=== PATIENT | female | born 1980 | race Caucasian/White ===

== ENCOUNTER 2024-10-28 10:28 | Emergency (ER) | payer OTHER ==
[2024-10-28] MEDS ORDERED: IPRATROPIUM BROM 0.5MG/2.5ML ONE (10:50)
[2024-10-28] MEDS ORDERED: ALBUTEROL 2.5 MG/3 ML NEB SOL ONE (10:50)
--- NOTE | 2024-10-28 11:10 | RAD REPORT ---
EXAM: Chest Pa And Lat (2 Views) HISTORY: Congestion;Cough COMPARISON: None. FINDINGS: LUNGS/PLEURA: The lungs are clear. No pleural effusions or pneumothorax. No pulmonary edema. MEDIASTINUM: The mediastinal silhouette is within normal limits. CARDIAC: The cardiac silhouette is within normal limits. UPPER ABDOMEN: No significant abnormality. BONES: No acute fracture. LINES/TUBES/OTHER: Left-sided Port-A-Cath with tip overlying the distal SVC in satisfactory position. IMPRESSION: No evidence of acute cardiopulmonary disease.
[2024-10-28 11:32] LABS: Absolute Basophils 0.1 K/uL (0-0.5); Absolute Eosinophils 0.4 K/uL (0-0.5); Absolute Lymphocytes (CBC) 1.2 K/uL (0.7-4.9); Absolute Monocytes 0.8 K/uL (0.1-1.3); Absolute Neutrophil 3.4 K/uL (1.8-8.0); Eosinophils % 7.3 % (0-4.4); Hematocrit 36.7 % (36.0-45.0); Hemoglobin 11.4 g/dL (12.0-15.0); Lymphocytes % 20.9 % (15.3-44.8); MCH 25.3 pg (27.0-35.0); MCHC 31.1 g/dL (32.0-36.0); MCV 81.6 fL (80-100); MPV 7.5 fL (7.6-11.3); Monocytes % 13.7 % (3.3-12.3); Neutrophils % 57.1 % (41.7-73.7); Platelets 429 thou/uL (152-406); Red Cell Distribution Width 16.8 % (12.1-15.2)
[2024-10-28 11:40] LABS: Anion Gap 9.9 mEq/L (5.0-15.0); Potassium 3.9 mEq/L (3.5-5.1)
--- NOTE | 2024-10-28 12:19 | EDPHYS ---
Physician Documentation [facility] Name: Shae Lara Age: 44 yrs Sex: Female : 1980 Arrival Date: 10/28/2024 Time: 10:28 Bed 13 Private MD: ED Physician Edson Bernal HPI: 10/28 11:32 This 44 yrs old Female presents to ER via Ambulatory with complaints of flu symptoms. sb4 11:35 shortness of breath, cough, congestion x 5 days. went to [facility] ED yesterday, was sb4 diagnosed with RSV. is concerned because they did not listen to her lungs or do a chest xray. patient states she was up all night coughing. denies any history of asthma or copd. does not smoke. Historical: - Allergies: 10:35 PENICILLINS; iw 10:35 Morphine; iw 10:35 Miralax; iw 10:35 Adhesives; iw 10:35 Latex, Natural Rubber; iw - PMHx: 10:35 ulcerative colitis; iw - PSHx: 10:35 Cholecystectomy; Appendectomy; tubal; iw 10:36 Tonsillectomy; iw - Immunization history:: Adult Immunizations up to date. - Infectious Disease History:: Denies. - Social history:: Smoking status: Patient denies any tobacco usage or history of. ROS: 11:35 Constitutional: Negative for fever, chills, and weight loss, sb4 11:35 ENT: Positive for sinus congestion, sinus pain, 11:35 Respiratory: Positive for cough, with green sputum, dyspnea on exertion, orthopnea, shortness of breath, wheezing, 11:35 All other systems are negative, Exam: 11:35 Head/Face: Normocephalic, atraumatic. Eyes: Extra-ocular motions intact. Periorbital sb4 areas with no swelling, redness, or edema. ENT: Mucous membranes moist. Cardiovascular: Regular rate and rhythm with a normal S1 and S2. Respiratory: No increased work of breathing, no retractions or nasal flaring. Abdomen/GI: Soft, non-tender, no distension. Skin: Warm, dry with normal turgor. Normal color with no rashes, no lesions, and no evidence of cellulitis. 11:35 Constitutional: The patient appears in no acute distress, alert, awake, obese, 11:37 Respiratory: the patient does not display signs of respiratory distress, Respirations: sb4 normal, no acute changes, Breath sounds: are clear throughout, Vital Signs: 10:33 BP 159 / 80; Pulse 84; Resp 20 S; Temp 97.2; Pulse Ox 99% on R/A; Weight 127.01 kg; iw Height 5 ft. 2 in. ; 11:18 BP 151 / 79; Pulse 70; Resp 17; Pulse Ox 99% on R/A; rs5 10:33 Body Mass Index 51.21 (127.01 kg, 157.48 cm) iw MDM: 10:37 Medical Screening Exam initiated sb4 12:18 Antibiotic administration: Not indicated, the patient does not have an appreciated sb4 infiltrate, the patient has a suspected viral illness. Data reviewed: vital signs, nurses notes, lab test result(s), radiologic studies, and as a result, I will discharge patient. Counseling: I had a detailed discussion with the patient and/or guardian regarding the historical points, exam findings, and any diagnostic results supporting the discharge/admit diagnosis, lab results, radiology results, the need for outpatient follow up, for definitive care, to return to the emergency department if symptoms worsen or persist or if there are any questions or concerns that arise at home. 10/28 10:45 Order name: CBC with Diff; Complete Time: 11:37 sb4 10/28 10:45 Order name: BMP; Complete Time: 11:42 sb4 10/28 10:45 Order name: Chest Pa And Lat (2 Views) XRAY; Complete Time: 11:21 sb4 10/28 10:45 Order name: IV Start; Complete Time: 11:17 sb4 Administered Medications: 11:05 Drug: DuoNeb Nebulize (3:1) (2.5 mg - 0.5 mg) 3 ml Nebulizer once Route: Nebulizer; rs5 11:19 Follow up: Response: No adverse reaction rs5 Disposition Summary: 10/28/24 12:19 Discharge Ordered Notes: Location: Home sb4 Problem: new sb4 Symptoms: have improved sb4 Condition: Stable sb4 Diagnosis - Respiratory syncytial virus as the cause of diseases classified elsewhere sb4 Followup: sb4 - With: Amalia Rodas, DO - When: 1 week - Reason: Recheck today's complaints, Continuance of care, Re-evaluation by your physician Followup: sb4 - With: Martin Chacko DO - When: As needed - Reason: Recheck today's complaints, Re-evaluation by your physician Followup: sb4 - With: Ginger Eckert MD - When: As needed - Reason: Recheck today's complaints, Re-evaluation by your physician Discharge Instructions: - Discharge Summary Sheet sb4 - Viral Respiratory Infection, [id number]-[id number] sb4 - Respiratory Syncytial Virus Infection, Adult sb4 Forms: - Patient Portal Instructions sb4 - Leadership Thank You Letter sb4 Prescriptions: - albuterol sulfate 90 mcg/actuation Inhalation HFA Aerosol Inhaler - inhale 1 puff INHALATION route every 4 to 6 hours as needed for sob or sb4 wheezing; 1 Applicator; Refills: 0, Product Selection Permitted - Prednisone 20 mg Oral Tablet - take 1 tablet ORAL route once daily for 5 days; 5 tablet; Refills: 0, Product sb4 Selection Permitted Addendum: 11/02/2024 12:51 Co-signature as Attending Physician, Edson Bernal MD I agree with the assessment and c hoover plan of care. Signatures: Dispatcher [employer] EDTX Edson Bernal MD MD cha Williams, Irene RN IHSAN iw Jina Rubin PA-C PAWyatt [email or web address] Marcelino Maravilla RN RN rs5 Corrections: (The following items were deleted from the chart) 10/28 11:37 11:35 Head/Face: Normocephalic, atraumatic. Eyes: Extra-ocular motions intact. sb4 Periorbital areas with no swelling, redness, or edema. ENT: Mucous membranes moist. Cardiovascular: Regular rate and rhythm with a normal S1 and S2. Respiratory: No increased work of breathing, no retractions or nasal flaring. Abdomen/GI: Soft, non-tender, no distension. Skin: Warm, dry with normal turgor. Normal color with no rashes, no lesions, and no evidence of cellulitis. sb4
--- NOTE | 2024-10-28 12:19 | ER ---
Nurse's Notes [facility] Name: Shae Lara Age: 44 yrs Sex: Female : 1980 Arrival Date: 10/28/2024 Time: 10:28 Bed 13 Private MD: Diagnosis: Respiratory syncytial virus as the cause of diseases classified elsewhere Presentation: 10/28 10:33 Chief complaint: Patient states: was seen at [facility] and they said it was RSV , has had iw cough, wheezing , fever , body aches, lungs and chest hurt , they did not do a CXR , symptoms started 10 days ago. Coronavirus screen: Client presents with at least one sign or symptom that may indicate coronavirus-19. Ebola Screen: No symptoms or risks identified at this time. Initial Sepsis Screen: Does the patient meet any 2 criteria? No. Patient's initial sepsis screen is negative. Does the patient have a suspected source of infection? No. Patient's initial sepsis screen is negative. Risk Assessment: Do you want to hurt yourself or someone else? Patient reports no desire to harm self or others. Onset of symptoms was October 18, 2024. 10:33 Method Of Arrival: Ambulatory iw 10:33 Acuity: TERRY 3 iw Triage Assessment: 11:18 General: Appears in no apparent distress. uncomfortable. General: Behavior is calm, rs5 cooperative. Respiratory: Respiratory: Onset: The symptoms/episode began/occurred. Historical: - Allergies: 10:35 PENICILLINS; iw 10:35 Morphine; iw 10:35 Miralax; iw 10:35 Adhesives; iw 10:35 Latex, Natural Rubber; iw - PMHx: 10:35 ulcerative colitis; iw - PSHx: 10:35 Cholecystectomy; Appendectomy; tubal; iw 10:36 Tonsillectomy; iw - Immunization history:: Adult Immunizations up to date. - Infectious Disease History:: Denies. - Social history:: Smoking status: Patient denies any tobacco usage or history of. Screenin:40 [facility] ED Fall Risk Assessment (Adult) History of falling in the last 3 months, rs5 including since admission No falls in past 3 months (0 pts) Confusion or Disorientation No (0 pts) Intoxicated or Sedated No (0 pts) Impaired Gait No (0 pts) Mobility Assist Device Used No (0 pt) Altered Elimination No (0 pt) Score/Fall Risk Level 0 - 2 = Low Risk Oriented to surroundings, Maintained a safe environment. Abuse screen: Denies threats or abuse. Nutritional screening: No deficits noted. Tuberculosis screening: No symptoms or risk factors identified. Assessment: 10:40 General: Appears in no apparent distress. uncomfortable, Behavior is calm, cooperative. rs5 Pain: Denies pain. Neuro: Level of Consciousness is awake, alert, obeys commands, Oriented to person, place, time, situation. Cardiovascular: Patient's skin is warm and dry. Rhythm is regular. Respiratory: Reports shortness of breath cough that is Airway is patent Respiratory effort is even, unlabored, Respiratory pattern is regular, symmetrical, Breath sounds are clear bilaterally. GI: Abdomen is round non-distended, Abd is soft and non tender X 4 quads. : No signs and/or symptoms were reported regarding the genitourinary system. EENT: No signs and/or symptoms were reported regarding the EENT system. Derm: Skin is intact, Skin is pink, warm \T\ dry. Musculoskeletal: Range of motion: intact in all extremities. 11:18 Reassessment: Patient and/or family updated on plan of care and expected duration. Pain rs5 level reassessed. Patient is alert, oriented x 3, equal unlabored respirations, skin warm/dry/pink. Vital Signs: 10:33 BP 159 / 80; Pulse 84; Resp 20 S; Temp 97.2; Pulse Ox 99% on R/A; Weight 127.01 kg; iw Height 5 ft. 2 in. ; 11:18 BP 151 / 79; Pulse 70; Resp 17; Pulse Ox 99% on R/A; rs5 10:33 Body Mass Index 51.21 (127.01 kg, 157.48 cm) iw ED Course: 10:30 Patient arrived in ED. ra3 10:35 Triage completed. iw 10:36 Arm band placed on. iw 10:37 Jina Rubin PA-C is PHCP. sb4 10:37 Edson Bernal MD is Attending Physician. sb4 10:40 Patient has correct armband on for positive identification. Placed in gown. Bed in low rs5 position. Call light in reach. Side rails up X2. 10:40 No provider procedures requiring assistance completed. rs5 10:40 Inserted saline lock: 22 gauge in right antecubital area, using aseptic technique. rs5 Blood collected. Flushed with 10 mL NS. 10:46 Marcelino Maravilla, RN is Primary Nurse. rs5 11:01 Chest Pa And Lat (2 Views) XRAY In Process Unspecified. EDMS 12:18 Amalia Rodas DO is Referral Physician. sb4 12:18 Martin Chacko DO is Referral Physician. sb4 12:18 Ginger Eckert MD is Referral Physician. sb4 12:25 Provided Education on: discharge instructions . rs5 12:28 IV discontinued, intact, bleeding controlled, No redness/swelling at site. Pressure rs5 dressing applied. Administered Medications: 11:05 Drug: DuoNeb Nebulize (3:1) (2.5 mg - 0.5 mg) 3 ml Nebulizer once Route: Nebulizer; rs5 11:19 Follow up: Response: No adverse reaction rs5 Medication: 11:19 VIS not applicable for this client. rs5 Outcome: 12:19 Discharge ordered by MD. sb4 12:28 Discharged to home ambulatory, rs5 12:28 Condition: stable rs5 12:28 Discharge instructions given to patient, family, Instructed on discharge instructions, follow up and referral plans. medication usage, Demonstrated understanding of instructions, follow-up care, medications, Prescriptions given X 1, 12:30 Patient left the ED. rs5 Signatures: Dispatcher [employer] EDCA Vicki Lowe RN RN iw Brown, Sophia, PA-C PA-C sb4 Marcelino Maravilla RN RN rs5 Emmy Lujan ra3 Corrections: (The following items were deleted from the chart) 10:35 10:33 Pulse 101bpm; Resp 20bpm; Spontaneous; Pulse Ox 99% RA; iw iw 10:37 10:33 BP 159 / 80; Pulse 101bpm; Resp 20bpm; Spontaneous; Pulse Ox 99% RA; Temp 97.2F; iw 127.01 kg; Height 5 ft. 2 in.; BMI: 51.2; iw
[2024-10-28 12:53] VITALS: TEMP 97.2; O2SAT 99
[2024-10-28 12:54] VITALS: BP 151/79
== END 2024-10-28 12:30 | disposition home or self-care (01) ==
LOC: ER 10:28
DX: R05.9 Cough, unspecified (principal); B97.4 Respiratory syncytial virus as the cause of diseases classified elsewhere
CPT/HCPCS: 85025; 80048; 36415; 71046; 99284; J7613; J7644

== ENCOUNTER 2024-12-02 10:53 | Emergency (ER) | payer OTHER ==
--- NOTE | 2024-12-02 12:35 | ER ---
Nurse's Notes [facility] Name: Shae Lara Age: 44 yrs Sex: Female : 1980 Arrival Date: 12/02/2024 Time: 10:53 Bed IW4 Private MD: Diagnosis: Dizziness and giddiness;Other otitis externa, left ear Presentation: 12/02 11:14 Chief complaint: Dizziness, left ear pain, and yellow drainage from left ear since this morning. Coronavirus screen: At this time, the client does not indicate any symptoms associated with coronavirus-19. Ebola Screen: No symptoms or risks identified at this time. Initial Sepsis Screen: Does the patient meet any 2 criteria? No. Patient's initial sepsis screen is negative. Does the patient have a suspected source of infection? No. Patient's initial sepsis screen is negative. Risk Assessment: Do you want to hurt yourself or someone else? Patient reports no desire to harm self or others. Onset of symptoms was December 02, 2024. 11:14 Method Of Arrival: Ambulatory hb 11:14 Acuity: TERRY 4 hb Historical: - Allergies: 11:15 Adhesives; hb 11:15 Latex; hb 11:15 Miralax; hb 11:15 PENICILLINS; hb 11:15 Morphine; hb - PMHx: 11:15 ulcerative colitis; hb - PSHx: 11:15 Cholecystectomy; Appendectomy; tubal; Tonsillectomy; hb - Immunization history:: Adult Immunizations up to date. - Infectious Disease History:: Denies. - Social history:: Smoking status: Patient denies any tobacco usage or history of. Screenin:46 [facility] ED Fall Risk Assessment (Adult) History of falling in the last 3 months, hb including since admission No falls in past 3 months (0 pts) Confusion or Disorientation No (0 pts) Intoxicated or Sedated No (0 pts) Impaired Gait No (0 pts) Mobility Assist Device Used No (0 pt) Altered Elimination No (0 pt) Score/Fall Risk Level 0 - 2 = Low Risk Oriented to surroundings, Maintained a safe environment, Educated pt \T\ family on fall prevention, incl call for assistance when getting out of bed, Assessed \T\ reinforced patient's understanding of fall precautions. Abuse screen: Denies threats or abuse. Denies injuries from another. Nutritional screening: No deficits noted. Tuberculosis screening: No symptoms or risk factors identified. Assessment: 12:46 Pain: Complains of pain in left ear. hb Vital Signs: 11:14 BP 163 / 95; Pulse 73; Resp 16; Temp 97.9(TE); Pulse Ox 98% on R/A; Weight 127.01 kg; hb Height 5 ft. 2 in. ; Pain 1/10; 11:14 Body Mass Index 51.21 (127.01 kg, 157.48 cm) hb 11:14 Pain Scale: Adult hb ED Course: 10:55 Patient arrived in ED. im 10:55 [facility] kb 10:55 David Turner MD is Attending Physician. kb 11:15 Triage completed. hb 11:15 Arm band placed on. hb 12:46 Patient has correct armband on for positive identification. Allergy band placed. hb Provided Education on: test. 12:46 No provider procedures requiring assistance completed. Patient did not have IV access hb during this emergency room visit. Administered Medications: No medications were administered Medication: 12:46 VIS not applicable for this client. hb Outcome: 12:35 Discharge ordered by MD. kb 12:46 Discharged to home ambulatory, hb 12:46 Condition: stable 12:46 Discharge instructions given to patient, Instructed on discharge instructions, follow up and referral plans. medication usage, Demonstrated understanding of instructions, follow-up care, medications, Prescriptions given X 1, 12:47 Patient left the ED. hb Signatures: Kathy Francis FNP-C FNP-Ckb Baxter, Heather, RN RN Jackie Taylor Corrections: (The following items were deleted from the chart) 11:16 11:14 BP 163 / 95; Pulse 73bpm; Resp 16bpm; Pulse Ox 98% RA; Temp 97.9F Temporal; Pain hb 02/15, Adult; hb
--- NOTE | 2024-12-02 12:36 | EDPHYS ---
Physician Documentation [facility] Name: Shae Lara Age: 44 yrs Sex: Female : 1980 Arrival Date: 12/02/2024 Time: 10:53 Bed IW4 Private MD: ED Physician David Turner HPI: 12/02 13:44 This 44 yrs old Female presents to ER via Ambulatory with complaints of Drainage From kb Ear - left, Dizziness. 13:44 Pt is a 44 year old female who presents for left ear pain and dizziness that started kb this morning. STates she removed a lot of pus from left ear just [employer] so she came in to have it evaluated. Denies palpitations, chest pain, syncope, fever. Historical: - Allergies: 11:15 Adhesives; hb 11:15 Latex; hb 11:15 Miralax; hb 11:15 PENICILLINS; hb 11:15 Morphine; hb - PMHx: 11:15 ulcerative colitis; hb - PSHx: 11:15 Cholecystectomy; Appendectomy; tubal; Tonsillectomy; hb - Immunization history:: Adult Immunizations up to date. - Infectious Disease History:: Denies. - Social history:: Smoking status: Patient denies any tobacco usage or history of. ROS: 13:43 Constitutional: As per HPI kb Exam: 13:43 Constitutional: This is a well developed, well nourished patient who is awake, alert, kb and in no acute distress. Head/Face: Normocephalic, atraumatic. Cardiovascular: Regular rate Respiratory: Respirations even and unlabored. No increased work of breathing. Talking in full sentences Skin: Warm, dry with normal turgor. Normal color. MS/ Extremity: Pulses equal, no cyanosis. Neurovascular intact. Full, normal range of motion. Neuro: Awake and alert, GCS 15, oriented to person, place, time, and situation. 13:43 ENT: Ear canal(s): swelling, that is minimal, of the left canal, TM's: are normal, Vital Signs: 11:14 BP 163 / 95; Pulse 73; Resp 16; Temp 97.9(TE); Pulse Ox 98% on R/A; Weight 127.01 kg; hb Height 5 ft. 2 in. ; Pain 11/17; 11:14 Body Mass Index 51.21 (127.01 kg, 157.48 cm) hb 11:14 Pain Scale: Adult hb MDM: 10:56 Medical Screening Exam initiated kb 13:44 Differential diagnosis: otitis media, otitis externa, ruptured TM, foreign body, acute kb otalgia. Data reviewed: vital signs, nurses notes. Counseling: I had a detailed discussion with the patient and/or guardian regarding the historical points, exam findings, and any diagnostic results supporting the discharge/admit diagnosis, the need for outpatient follow up, a family practitioner, to return to the emergency department if symptoms worsen or persist or if there are any questions or concerns that arise at home. ED course: Pt did not want to wait for EKG and urinalysis. Requested prescription for ear drops and discharge so she could go to work. Will return for any concerns. 12/02 11:20 Order name: EKG; Complete Time: 11:21 kb 12/02 11:20 Order name: EKG - Nurse/Tech kb Administered Medications: No medications were administered Disposition: 14:18 Co-signature as Attending Physician, David Turner MD I reviewed the patient's care rt provided by the Advanced Practice Provider and agree with the diagnosis and treatment plan. Disposition Summary: 12/02/24 12:35 Discharge Ordered Notes: Location: Home kb Condition: Stable kb Diagnosis - Dizziness and giddiness kb - Other otitis externa, left ear kb Followup: kb - With: Emergency Department - When: As needed - Reason: Worsening of condition Followup: kb - With: Private Physician - When: 2 - 3 days - Reason: Recheck today's complaints, Continuance of care, Re-evaluation by your physician Discharge Instructions: - Discharge Summary Sheet kb - Otitis Externa, [id number] kb - Ear Drops, Adult, [id number] kb - Dizziness, [id number] kb Forms: - Medication Reconciliation Form kb - Antibiotic Education kb - Prescription Opioid Use kb - Patient Portal Instructions kb - Leadership Thank You Letter kb Prescriptions: - Ciprodex 0.3-0.1 % Otic drops, suspension - instill 4 drops OTIC route every 12 hours for 7 days , for ears ONLY; 1 kb Unspecified; Refills: 0, Product Selection Permitted Signatures: Dispatcher [employer] Kathy Adams, ARCADIO-C ARCADIO-Daylin Triplett RN RN hb David Turner MD MD rt
[2024-12-02 13:52] VITALS: BP 163/95; TEMP 97.9; O2SAT 98
== END 2024-12-02 12:47 | disposition home or self-care (01) ==
LOC: ER 10:53
DX: H60.8X2 Other otitis externa, left ear (principal)
CPT/HCPCS: 99283